=== PATIENT | female | born 1985 | race Caucasian/White ===

== ENCOUNTER → 2018-02-13 | Outpatient (CLI) | payer BC ==
[2018-02-13 09:46] LABS: HCT 38.2 % (34.0-46.0); HGB 12.6 gm/dL (11.4-16.0); MCH 29.3 pg (25.0-35.0); MCHC 32.9 g/dL (31.0-37.0); MCV 89.3 fL (80.0-100.0); Mean Platelet Volume 7.2; Platelet Count 244 k/uL (150-450); RBC 4.28 m/uL (3.80-5.40)
== END | disposition home or self-care (01) ==
LOC: LABWHC1 09:17
PROVIDERS: ATTEND Family Medicine
DX: J03.90 Acute tonsillitis, unspecified (principal); Z30.02 Counseling and instruction in natural family planning to avoid pregnancy
CPT/HCPCS: 36415; 83655; 85027